=== PATIENT | male | born 1975 | race African-American/Black ===

== ENCOUNTER 2017-04-30 12:22 | Observation (INO) | payer OTHER ==
[2017-04-30 13:23] LABS: URINE APPEARANCE CLEAR; URINE BILIRUBIN NEGATIVE (NEGATIVE); URINE COLOR LTYELLOW; URINE GLUCOSE (UA) NEGATIVE (NEGATIVE); URINE KETONE NEGATIVE (NEGATIVE); URINE LEUK ESTERASE NEGATIVE (NEGATIVE); URINE NITRITE NEGATIVE (NEGATIVE); URINE PROTEIN NEGATIVE (NEGATIVE); URINE UROBILINOGEN NEGATIVE E.U./dl (0.2-1.0)
--- NOTE | 2017-04-30 13:34 | PDOC ---
History of Present Illness <Elyssa Hadley - Last Filed: 04/30/17 17:58> - General History Source: Patient Exam Limitations: No Limitations - History of Present Illness Initial Comments: 04/30/17 13:00 sent from clinic for evaluation of acute onset of visual change to left eye. had a long trip to [place] for a family and returned Friday. since that time has had a mild headache, some numbness 2 left side of his face that starts from his brow and extends to his chin, that started while in [place] last weekend and worsened Friday. On Friday had new onset of visual changes, with loss of visual acuity. Patient denies trauma, denies any history of ocular disease including glaucoma, retinal detachment, or conjunctivitis. Patient went to Didi Peng, his PCP this morning who sent him to this emergency department to be evaluated for these changes. 04/30/17 15:14 Timing/Duration: unsure Severity: mild Associated Symptoms: reports: denies symptoms, headaches, malaise. denies: fever/chills, loss of appetite <Subha Lai - Last Filed: 05/02/17 10:16> - General Chief Complaint: Blurry Vision Stated Complaint: RT BLURRY VISION Time Seen by Provider: 04/30/17 12:46 Past History <Elyssa Hadley - Last Filed: 04/30/17 17:58> - Travel Traveled outside of the country in the last 30 days: No Close contact w/someone who was outside of country & ill: No - Past Medical History Other medical history: NONE - Psycho/Social/Smoking Cessation Hx Suicidal Ideation: No Smoking History: Former smoker Have you smoked in the past 12 months: No If you are a former smoker, when did you quit?: 1 WK AGO Information on smoking cessation initiated: Yes 'Breaking Loose' booklet given: 04/30/17 Hx Alcohol Use: Yes (SOCIAL) Drug/Substance Use Hx: No Substance Use Type: None <Subha Lai - Last Filed: 05/02/17 10:16> - Past Medical History Allergies/Adverse Reactions: Allergies Allergy/AdvReac Type Severity Reaction Status Date / Time No Known Allergies Allergy Verified 04/30/17 12:38 Home Medications: Ambulatory Orders NK [No Known Home Medication] 04/30/17 Review of Systems - Review of Systems Able to Perform ROS?: Yes Is the patient limited Polish proficient: Yes Constitutional: Yes: Symptoms Reported, See HPI, Malaise. No: Chills, Fever, Loss of Appetite HEENTM: Yes: Symptoms Reported, See HPI, Eye Pain, Blurred Vision. No: Tearing Respiratory: Yes: See HPI. No: Symptoms reported, Cough Cardiac (ROS): Yes: See HPI. No: Symptoms Reported, Chest Pain, Edema ABD/GI: Yes: Symptoms Reported : No: Symptoms Reported Musculoskeletal: Yes: Symptoms Reported All Other Systems: Reviewed and Negative <Subha Lai - Last Filed: 05/02/17 10:16> *Physical Exam - Vital Signs Last Vital Signs Temp Pulse Resp BP Pulse Ox 98.3 F 64 18 133/90 100 04/30/17 15:15 04/30/17 15:15 04/30/17 15:15 04/30/17 15:15 04/30/17 15:15 <Elyssa Hadley - Last Filed: 04/30/17 17:58> - Vital Signs Last Vital Signs Temp Pulse Resp BP Pulse Ox 98.3 F 66 20 117/78 100 04/30/17 12:35 04/30/17 12:35 04/30/17 12:35 04/30/17 12:35 04/30/17 12:35 - Physical Exam General Appearance: Yes: Nourished, Appropriately Dressed, Apparent Distress, Mild Distress HEENT: positive: SAMANTHA (right eye is 20/20, left eye 20/200), Normal ENT Inspection, TMs Normal (congested but landmarks visualized bilaterally), Other Neck: positive: Supple, Lymphadenopathy (R), Lymphadenopathy (L). negative: Tender Respiratory/Chest: positive: Lungs Clear, Normal Breath Sounds. negative: Chest Tender Gastrointestinal/Abdominal: positive: Tender, Soft Musculoskeletal: positive: Normal Inspection Extremity: positive: Normal Capillary Refill, Normal Inspection, Normal Range of Motion (good strength equal) Integumentary: positive: Normal Color, Dry, Warm. negative: Rash, Swelling Neurologic: positive: area loss prevention manager II-XII NML intact, Fully Oriented, Alert, Normal Mood/ Affect, Normal Response, Motor Strength 5/5, EOM Palsy, Facial Droop, Numbness ( some numbness reported left side of face), Other (and has mild leg to left face with some sensory diminished extending from left brow to chin. Able to wink and seems motor equivalent to right side. Tongue without deviation, able to smile.) . negative: Abnormal Cranial NS, Sensory Deficit, Finger to Nose, Confused, Depressed Affect, Babinski <Subha Lai - Last Filed: 05/02/17 10:16> ED Treatment Course - LABORATORY CBC & Chemistry Diagram: 04/30/17 13:15 04/30/17 13:15 - ADDITIONAL ORDERS Additional order review: Laboratory Results 04/30/17 04/30/17 04/30/17 13:15 13:15 13:15 INR 0.99 Sodium 140 Potassium 3.6 Chloride 102 Carbon Dioxide 30 Anion Gap 8 BUN 11 Creatinine 1.0 Creat Clearance w eGFR > 60 Random Glucose 103 Calcium 9.0 Total Bilirubin 0.4 AST 36 ALT 35 Alkaline Phosphatase 102 Total Protein 7.2 Albumin 3.6 Urine Color Ltyellow Urine Appearance Clear Urine pH 7.0 Urine Protein Negative Urine Glucose (UA) Negative Urine Ketones Negative Urine Blood 1+ H Urine Nitrite Negative Urine Bilirubin Negative Urine Urobilinogen Negative Ur Leukocyte Esterase Negative Urine RBC 3 Urine WBC <1 04/30/17 13:15 RBC 5.36 MCV 87.1 MCHC 34.6 RDW 14.8 MPV 8.1 Neutrophils % 58.4 Lymphocytes % 32.6 Monocytes % 8.3 Eosinophils % 0.3 Basophils % 0.4 - Medications Given in the ED: ED Medications Discontinued Medications Generic Name Dose Route Start Last Admin Trade Name Freq PRN Reason Stop Dose Admin Acetaminophen 1,000 mg 04/30/17 15:05 04/30/17 15:11 Ofirmev Injection - IVPB 04/30/17 15:06 1,000 mg ONCE ONE Administration <Elyssa Hadley - Last Filed: 04/30/17 17:58> - LABORATORY CBC & Chemistry Diagram: 05/01/17 06:00 05/01/17 06:00 <Subha Lai - Last Filed: 05/02/17 10:16> Medical Decision Making - Medical Decision Making 04/30/17 15:03 Loss to left eye with sensory changes to the face, labs, and CAT scan to be obtained. We'll treat with IV Tylenol for headache pain relief 04/30/17 17:03 Dr Abernathy paged for Optho consult 04/30/17 17:04 Laboratory work within normal limits, CAT scan of head does not reveal any masses or any other intracranial pathology. Discussed case with Dr. Burnett who was on-call for neurology who agrees MRI of the orbit and head would be warranted due to the central neurologic changes observed inpatient. Patient updated plan, and will admit to hospitalist service for observation and MRI 04/30/17 20:07 Dr Abernathy paged x 5 total starting from 17:30 [facility] no return call. Dr Davenport evaluated patient who has received his MRI. Has been admitted for obs per hospitalist pending MRI and optho consult. Patiene and family updated to plan. States received some relief from IV Tylenol earlier, is eating and feels well. Although visual acuity has been unchanged and continues with significant visual loss to the left eye. 04/30/17 20:09 <Subha Lai - Last Filed: 05/02/17 10:16> *DC/Admit/Observation/Transfer - Discharge Dispostion Admit: Yes <Elyssa Hadley - Last Filed: 04/30/17 17:58> - Discharge Dispostion Admit: Yes <Subha Lai - Last Filed: 05/02/17 10:16> Diagnosis at time of Disposition: Change in vision - Discharge Dispostion Disposition: HOME Condition at time of disposition: Stable - Referrals
[2017-04-30 13:37] LABS: BASOPHIL 0.4 % (0-2.0); EOSINOPHIL 0.3 % (0-4.5); MCH 30.2 pg (25.7-33.7); MCHC 34.6 g/dl (32.0-35.9); MEAN CELL VOLUME 87.1 fl (80-96); MEAN PLT VOLUME 8.1 fl (7.5-11.1); NEUTROPHILS 58.4 % (42.8-82.8); PLATELET COUNT 162 K/MM3 (134-434); RDW 14.8 % (11.9-15.9); WHITE BLOOD COUNT 8.1 K/mm3 (4.0-10.0)
[2017-04-30 13:47] LABS: INR 0.99 (0.82-1.09); PROTHROMBIN TIME (PATIENT) 10.9 SEC (9.98-11.88)
[2017-04-30 13:55] LABS: URINE BLOOD 1+ (NEGATIVE)
[2017-04-30 13:57] LABS: ALBUMIN 3.6 g/dl (3.4-5.0); ALK PHOS 102 U/L (45-117); ANION GAP 8 (8-16); BILIRUBIN,TOTAL 0.4 mg/dL (0.2-1.0); CO2 30 mmol/L (21-32); COCKROFT - GAULT 101.44; GLUCOSE,RANDOM 103 mg/dL (74-106); SGOT/AST 36 U/L (15-37); SGPT/ALT 35 U/L (12-78); TOT PROT 7.2 g/dl (6.4-8.2)
[2017-04-30 13:58] LABS: URINE RBC 3 /hpf (0-3); URINE WBC <1 /hpf (3-5)
[2017-04-30] MEDS ORDERED: ACETAMINOPHEN INJECTION 100 ML IVPB ONE (15:01)
[2017-04-30] MEDS ORDERED: ACETAMINOPHEN 1000 MG/100 ML VIAL (NON FORMULARY) IVPB ONE (15:05)
--- NOTE | 2017-04-30 18:09 | HP ---
CHIEF COMPLAINT: left facial numbness and left eye blurred vision x today PCP: HISTORY OF PRESENT ILLNESS: This is a 42 yo man with PMH of CVA and frequent headaches who presents today with left sided facial numbness and loss of visual acuity to his left eye. He states he returned from [facility] on 04/28 following the of his father in his usual state of health until he woke up this morning with decreased visual acuity in his left eye. This was accompanied by a mild headache which was different than his usual headaches. He also noted numbness to the left side of his face with a slight facial droop. 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 Allergies No Known Allergies Allergy (Verified 04/30/17 12:38) HOME MEDICATIONS: Home Medications 3 Medication Instructions Recorded NK [No Known Home Medication] 04/30/17 REVIEW OF SYSTEMS CONSTITUTIONAL: Absent: fever, chills, diaphoresis, generalized weakness, malaise, loss of appetite, weight change HEENT: Absent: rhinorrhea, nasal congestion, throat pain, throat swelling, difficulty swallowing, mouth swelling, ear pain, eye pain, visual changes CARDIOVASCULAR: Absent: chest pain, syncope, palpitations, irregular heart rate, lightheadedness , peripheral edema RESPIRATORY: Absent: cough, shortness of breath, dyspnea with exertion, orthopnea, wheezing, stridor, hemoptysis GASTROINTESTINAL: Absent: abdominal pain, abdominal distension, nausea, vomiting, diarrhea, constipation, melena, hematochezia GENITOURINARY: Absent: dysuria, frequency, urgency, hesitancy, hematuria, flank pain, genital pain MUSCULOSKELETAL: Absent: myalgia, arthralgia, joint swelling, back pain, neck pain SKIN: Absent: rash, itching, pallor HEMATOLOGIC/IMMUNOLOGIC: Absent: easy bleeding, easy bruising, lymphadenopathy, frequent infections ENDOCRINE: Absent: unexplained weight gain, unexplained weight loss, heat intolerance, cold intolerance NEUROLOGIC: Present: headache, left sided facial parethesia, left eye blurred vision Absent: focal weakness, dizziness, unsteady gait, seizure, mental status changes , bladder or bowel incontinence PSYCHIATRIC: Absent: anxiety, depression, suicidal or homicidal ideation, hallucinations. PHYSICAL EXAMINATION Vital Signs - 24 hr 3 04/30/17 04/30/17 12:35 15:15 Temperature 98.3 F 98.3 F Pulse Rate 66 Pulse Rate [ 64 Apical] Respiratory 20 18 Rate Blood Pressure 117/78 Blood Pressure 133/90 [Left Arm] O2 Sat by Pulse 100 100 Oximetry (%) GENERAL: Awake, alert, and fully oriented, in no acute distress. HEAD: Normal with no signs of trauma. EYES: Pupils equal, round and reactive to light, extraocular movements intact, sclera anicteric, conjunctiva clear. Facial droop noted in left nasolabial fold. EARS, NOSE, THROAT: Ears normal, nares patent, oropharynx clear without exudates. Moist mucous membranes. NECK: Normal range of motion, supple without lymphadenopathy, JVD, or masses. LUNGS: Breath sounds equal, clear to auscultation bilaterally. No wheezes, and no crackles. No accessory muscle use. HEART: Regular rate and rhythm, normal S1 and S2 without murmur, rub or gallop. ABDOMEN: Soft, nontender, not distended, normoactive bowel sounds, no guarding, no rebound, no masses. No hepatomegaly or splenomegaly. MUSCULOSKELETAL: Normal range of motion at all joints. No bony deformities or tenderness. No CVA tenderness. UPPER EXTREMITIES: 2+ pulses, warm, well-perfused. No cyanosis. No clubbing. No peripheral edema. LOWER EXTREMITIES: 2+ pulses, warm, well-perfused. No calf tenderness. No peripheral edema. NEUROLOGICAL: Left eye visual actuity is diminished and he has difficulty finger counting at three feet. Light perception is intact he has difficulty seeing moving hand in all four quadrant of left eye. Right eye -- visual field is normal with confrontation. Normal speech. Normal gait. Trace facial droop noted in left nasolabial fold. PSYCHIATRIC: Cooperative. Good eye contact. Appropriate mood and affect. SKIN: Warm, dry, normal turgor, no rashes or lesions noted, normal capillary refill. Laboratory Results - last 24 hr 3 04/30/17 04/30/17 04/30/17 13:15 13:15 13:15 WBC 8.1 RBC 5.36 Hgb 16.2 Hct 46.7 MCV 87.1 MCHC 34.6 RDW 14.8 Plt Count 162 MPV 8.1 Neutrophils % 58.4 Lymphocytes % 32.6 Monocytes % 8.3 Eosinophils % 0.3 Basophils % 0.4 ESR INR 0.99 Sodium Potassium Chloride Carbon Dioxide Anion Gap BUN Creatinine Creat Clearance w eGFR Random Glucose Calcium Total Bilirubin AST ALT Alkaline Phosphatase Total Protein Albumin Urine Color Ltyellow Urine Appearance Clear Urine pH 7.0 Urine Protein Negative Urine Glucose (UA) Negative Urine Ketones Negative Urine Blood 1+ H Urine Nitrite Negative Urine Bilirubin Negative Urine Urobilinogen Negative Ur Leukocyte Esterase Negative Urine RBC 3 Urine WBC <1 3 04/30/17 04/30/17 13:15 13:15 WBC RBC Hgb Hct MCV MCHC RDW Plt Count MPV Neutrophils % Lymphocytes % Monocytes % Eosinophils % Basophils % ESR 3 INR Sodium 140 Potassium 3.6 Chloride 102 Carbon Dioxide 30 Anion Gap 8 BUN 11 Creatinine 1.0 Creat Clearance w eGFR > 60 Random Glucose 103 Calcium 9.0 Total Bilirubin 0.4 AST 36 ALT 35 Alkaline Phosphatase 102 Total Protein 7.2 Albumin 3.6 Urine Color Urine Appearance Urine pH Urine Protein Urine Glucose (UA) Urine Ketones Urine Blood Urine Nitrite Urine Bilirubin Urine Urobilinogen Ur Leukocyte Esterase Urine RBC Urine WBC Imaging: CTH as read by Dr. Shaffer: No hemmorhage, edema, midline shift, mass effect or skull fracture. CXR as read by Denia: Normal chest. ASSESSMENT/PLAN: A: This is a 42 yo man with PMH of CVA and frequent headaches who presents today with left sided facial numbness and loss of visual acuity to his left eye. He states he returned from [facility] on 04/28 following the of his father in his usual state of health until he woke up this morning with decreased visual acuity in his left eye. This was accompanied by a mild headache today that is similar to his usual headaches in character but lower in intensity. He also noted numbness to the left side of his face with a slight facial droop. CTH negative. MRI pending. P: 1. subacute CVA vs. Giant Cell Arteritis vs MS - CT negative - MRI face/orbit/head - Neuro Burnett aware of case - consider steroids pending MRI 2. F/E/N - regular diet - replete PRN 3. PPX - OOB as tolerated Dispo: This patient needs observation for acute medical condition. Code Status: FULL CODE Visit type - Emergency Visit Emergency Visit: Yes ED Registration Date: 04/30/17 Care time: The patient presented to the Emergency Department on the above date and was hospitalized for further evaluation of their emergent condition. - New Patient This patient is new to me today: Yes Date on this admission: 05/04/17 - Critical Care Critical Care patient: No
--- NOTE | 2017-04-30 19:23 | CON.NEURO ---
Consult - History of Present Illness History of Present Illness: 2 year old otherwise healthy person, he is from [facility] . He has been experiencing left eye visual loss and some strange sensation ( something crawling under his skin). He denies any headache, or dysphagia, diplopia or dysarthria. He denies any weakness or numbness anywhere in the body. He had ct head , which was normal. - Alcohol/Substance Use Hx Alcohol Use: Yes (SOCIAL) - Smoking History Smoking history: Former smoker Have you smoked in the past 12 months: No If you are a former smoker, when did you quit?: 1 WK AGO Home Medications - Allergies Allergies/Adverse Reactions: Allergies Allergy/AdvReac Type Severity Reaction Status Date / Time No Known Allergies Allergy Verified 04/30/17 12:38 - Home Medications Home Medications: Ambulatory Orders NK [No Known Home Medication] 04/30/17 Physical Exam-Neuro Vital Signs: Vital Signs Temperature 98.3 F 04/30/17 15:15 Pulse Rate 64 04/30/17 15:15 Respiratory Rate 18 04/30/17 15:15 Blood Pressure 133/90 04/30/17 15:15 O2 Sat by Pulse Oximetry (%) 100 04/30/17 15:15 Labs: INR, PTT INR 0.99 (0.82-1.09) 04/30/17 13:15 NIH Stroke Scale - Total Score NIH Stroke Scale Score: 0 Imaging - Results Cat Scan: Report Reviewed Assessment/Plan cc left eye visual loss and left face numbness HPI 42 year old otherwise healthy person, he is from [facility] . He has been experiencing left eye visual loss and some strange sensation ( something crawling under his skin). He denies any headache, or dysphagia, diplopia or dysarthria. He denies any weakness or numbness anywhere in the body. He had ct head , which was normal. Past medical history denies any significant history Past surgery none Medication none Neurological Examination Alert orietned x 3 CN intact except left eye visual actuity is diminisehd and he has difficulty finger counting at three feet, light perception is intact he has difficulty seeing moving hand in all four quadrant of left eye right eye -- visual field is normal with confrontation pupils reactive bilaterally Left pupil RAPD is positive facial sensation is normal bilaterally CT head is unremarkable Mri report is pending Assessment /pLAN 42 year old ,otherwise healthy, complain of left eye visual loss etiology unclear ? optic neuritis other opthalmological cause need to be ruled out. Initial ct scan is normal, mri of brain done,official reports is pending. I do not see any white matter lesion suggestive of MS ( ms is not common disease at [facility]) Plan -- leave upto opthalmologist for further work up . follow up mri report, if report suggestive of MS, suggest to give iv steroid. Thanks for consult Gonzalez Saavedra MD
[2017-04-30] MEDS ORDERED: ACETAMINOPHEN 325 MG TABLET (FP) PO PRN (19:31)
[2017-04-30 21:01] VITALS: BMI 24.6
[2017-05-01 07:38] LABS: BASOPHIL 0.1 % (0-2.0); EOSINOPHIL 0.4 % (0-4.5); MEAN CELL VOLUME 85.6 fl (80-96); NEUTROPHILS 55.9 % (42.8-82.8); PLATELET COUNT 156 K/MM3 (134-434); RDW 14.6 % (11.9-15.9); WHITE BLOOD COUNT 6.7 K/mm3 (4.0-10.0)
[2017-05-01 07:56] LABS: CALCIUM 9.2 mg/dL (8.5-10.1); COCKROFT - GAULT 113.3; CREATININE 0.9 mg/dL (0.7-1.3)
--- NOTE | 2017-05-01 09:21 | CONSULT ---
Consult - text type - Consultation Consultation Note: Ophthalmology consult 42 year old male presented yesterday c/o with some left sided facial numbness, went to scratch/rub his eye and noted that left eye vision was decreased. Symptoms started 2 days ago near [place] OD 20/30, OS 20/200 P 4/4 --> 3+/2+ +APD left eye PLE LLL flat OU S/C no injection K clear OU A/D formed OU I round OU direct ophthalmoscopy: clear view OU, no heme OU, ON appears healthy OD, significant pallor OS Impression/plan Optic nerve pallor OS, with APD. CT head/orbits, MRI head all normal. ESR normal. There is a possibility that this loss of vision is chronic, sophy in light of atrophic nerve, APD and apparent incidental awareness of the loss of vision by the patient when he closed his right eye. Pt needs follow up as an outpatient for a full ophthalmologic exam, including visual field testing.
--- NOTE | 2017-05-01 10:35 | EKG ---
Test Reason : Blood Pressure : / mmHG Vent. Rate : 057 BPM Atrial Rate : 057 BPM P-R Int : 162 ms QRS Dur : 082 ms QT Int : 378 ms P-R-T Axes : 073 -13 006 degrees QTc Int : 367 ms SINUS BRADYCARDIA NONSPECIFIC T WAVE ABNORMALITY ABNORMAL ECG NO PREVIOUS ECGS AVAILABLE Confirmed by NICK BAUTISTA, ROSALINDA ([id number]) on 05/01/2017 10:35:38 AM Referred By: Confirmed By:ROSALINDA ROMERO MD
[2017-05-01 14:49] VITALS: BP 133/84; PULSE 71; TEMP 98.9
--- NOTE | 2017-05-01 15:18 | CON.ENT ---
Consult Consult Specialty:: ENT Reason for Consultation:: r/o mastoiditis - History of Present Illness Chief Complaint: left vision loss History of Present Illness: 42M from [facility] presented and was admitted for left vision loss, and has been seen and worked up by Neurology and Ophthalmology without clear etiology. CT Head was done with no significant temporal bone findings, and minimal sinus inflammation. MRI was later done reported to show right mastoid effusion and sinus thickening. No palliating or provoking factors. No throat pain. The patient is very concerned about his left eye. He currently denies any ear pain, hearing loss, tinnitus, or vertigo. He has no sinus congestion, runny nose , or postnasal drip. He does not he had some sinus and ear pressure during descent on a recent plane trip, otherwise asymptomatic in this respect. - History Source History Provided By: Patient - Alcohol/Substance Use Hx Alcohol Use: Yes (SOCIAL) - Smoking History Smoking history: Former smoker Have you smoked in the past 12 months: Yes If you are a former smoker, when did you quit?: 1 WK AGO Home Medications - Allergies Allergies/Adverse Reactions: Allergies Allergy/AdvReac Type Severity Reaction Status Date / Time No Known Allergies Allergy Verified 04/30/17 12:38 - Home Medications Home Medications: Ambulatory Orders NK [No Known Home Medication] 04/30/17 Review of Systems - Review of Systems HENT: denies: Difficult Swallowing, Ear Discharge, Ear Pain, Hearing Loss, Nasal Congestion Physical Exam-ENT Vital Signs: Vital Signs Temperature 98.9 F 05/01/17 13:00 Pulse Rate 71 05/01/17 13:00 Respiratory Rate 18 05/01/17 13:00 Blood Pressure 133/84 05/01/17 13:00 O2 Sat by Pulse Oximetry (%) 100 05/01/17 11:00 Constitutional: Yes: Well Nourished, No Distress, Calm Head: Yes: WNL Face: Yes: WNL, Other Eyes: Yes: Other (subjective vision problems left eye (defer to ophtho). EOMI) Nose: Yes: WNL Nasal Passage: Yes: WNL Oral/Pharynx: Yes: WNL, Other (L>>R carious maxillary teeth) Outer Ear: Yes: WNL, Other (no mastoid TTP. no auricular protrusion or cellulitis, edema, induration.) Ear Canal: Yes: WNL Tympanic Membrane: Yes: WNL, Other (sl retracted. no fluid) Neck: Yes: WNL Neurological: Yes: Other (CN3-7,11,12 intact) Imaging - Results Cat Scan: Report Reviewed, Image Reviewed (CT Head - well aerated and pneumatized temporal bones. no effusions noted. some L max sinus thickening mostly aerated.) MRI: Report Reviewed, Image Reviewed Problem List - Problems (1) Change in vision Assessment/Plan: MRI noted mastoid effusion -- MRI over-calls sinus and mastoid inflammation. The CT review (though not dedicated T Bone nor Sinus) shows nicely pneumatized and aerated mastoids without effusion. This is not mastoiditis. Mastoiditis is a clinical (not radiographic) diagnosis and in the absence of any ear symptoms and no middle ear infection, there is no mastoiditis. The minimal sinusitis seen on CT is likely related to the subjacent carious left maxillary tooth root - advised dental evaluation. He denies any sinus symptoms. Advise outpatient followup in two weeks with a hearing test. Left eye workup per Neuro/Ophtho Code(s): H53.9 - UNSPECIFIED VISUAL DISTURBANCE
--- NOTE | 2017-05-01 15:33 | DS ---
Physical Exam: SUBJECTIVE: Patient seen and examined. He reports the black out of his left eye is resolved, now just blurry. OBJECTIVE: Vital Signs Period Temp Pulse Resp BP Sys/Jacobo Pulse Ox Last 24 Hr 97.8 F-98.9 F 57-75 16-20 111-143/39-89 96-100 PE Neuro: alert, awake, cn 2-12intact HEENT: mild L mastoid tenderness, no frontal sinus TTP, subjective visual acuity diminished, reports blurry PERRLA Pulm: CTAB CV: s1 s2 rrr no mrg Abd: s nt nd + bs Ext: Warm, no le edema Laboratory Results - last 24 hr 05/01/17 05/01/17 06:00 06:00 WBC 6.7 RBC 5.27 Hgb 15.8 Hct 45.1 MCV 85.6 MCHC 35.0 RDW 14.6 Plt Count 156 MPV 8.0 Neutrophils % 55.9 Lymphocytes % 31.6 Monocytes % 12.0 H Eosinophils % 0.4 Basophils % 0.1 Sodium 142 Potassium 3.8 Chloride 104 Carbon Dioxide 28 Anion Gap 10 BUN 8 D Creatinine 0.9 Random Glucose 92 Calcium 9.2 HOSPITAL COURSE: Date of Admission:04/30/17 Date of Discharge: 05/01/17 Minutes to complete discharge: 35 Discharge Summary Reason For Visit: CHANGE IN VISION Current Active Problems Change in vision (Acute) Hospital Course: Initial hospital Course: 42 yo man with PMH of CVA and frequent headaches who presented with left sided facial numbness and loss of visual acuity to his left eye. He returned from [facility] on 04/28 following the of his father in his usual state of health until he woke up this morning with decreased visual acuity in his left eye. This was accompanied by a mild headache which was different than his usual headaches. He also noted numbness to the left side of his face with a slight facial droop. Subsequent Hospital Course/Progress Note/Discharge Summary by a/p: Evaluated by Neuro MRI head normal, CT head/orbits chronic sinusitis, no mastoiditis per ENT ESR normal Per optho, further full ophthalmologic exam, including visual field testing in office. Pt aware and to follow up (refer to EMR note for details) Dispo - Home with optho follow up, pt aware and agrees. Condition: Stable - Instructions Diet, Activity, Other Instructions: Please return to the ED for any new, persistent, or worsening symptoms. Follow up with your PCP in 1 week. You will need to follow up with opthomology next week in office for further testing as discussed. (referral information enclosed) Referrals: Jas Josue [Primary Care Provider] - Abhijeet Abernathy [Staff Physician] - Disposition: HOME - Home Medications Comprehensive Discharge Medication List: Ambulatory Orders NK [No Known Home Medication] 04/30/17 This patient is new to me today: Yes Date on this admission: 05/01/17 Emergency Visit: Yes ED Registration Date: 04/30/17 Care time: The patient presented to the Emergency Department on the above date and was hospitalized for further evaluation of their emergent condition. Critical Care patient: No - Discharge Referral Referred to [facility] Med [facility] No
== END 2017-05-01 17:22 | disposition home or self-care (01) ==
LOC: JER 12:22 → JERBED 17:58 → J7W 20:45
PROVIDERS: ADMIT Internal Medicine; ATTEND Nurse Practitioner Acute Care
PROC: 3E033GC Introduction of Other Therapeutic Substance into Peripheral Vein, Percutaneous Approach (ICD-10-PCS; principal; 2017-04-30)
DX: H53.8 Other visual disturbances (principal); Z87.891 Personal history of nicotine dependence; Z86.73 Personal history of transient ischemic attack (TIA), and cerebral infarction without residual deficits
CPT/HCPCS: 36415; 70450-TC; 70542-TC; 70553-TC; 71010-TC; 80048; 80053; 81003; 81015; 85025; 85610; 85651; 93005; 93010; 99284-25; A9576; G0378